=== PATIENT | female | born 2005 | race Caucasian/White ===

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

== ENCOUNTER 2024-06-20 14:14 | Outpatient (CLI) | payer OTHER, SELFPAY ==
--- NOTE | 2024-06-20 14:16 | XR_ITS ---
FINAL REPORT CLINICAL HISTORY: foot pain COMPARISON: 01/13/2022 FINDINGS: AP, oblique and lateral views of the right foot were obtained. Lytic expansile lesion in the 2nd proximal phalanx is unchanged. There is no acute osseous abnormality. The joint spaces are preserved. Soft tissues are normal. IMPRESSION: No acute osseous abnormality of the right foot. Reviewed, Interpreted and Dictated by Mara Ibrahim MD Transcribed by Swathi Saravia Authenticated and . [facility]
--- NOTE | 2024-06-20 14:16 | XR_ITS ---
FINAL REPORT CLINICAL HISTORY: foot pain COMPARISON: 01/13/2022 FINDINGS: AP, oblique and lateral views of the left foot were obtained. There is no acute fracture or dislocation. The joint spaces are preserved. Soft tissues are normal. IMPRESSION: No acute osseous abnormality of the left foot. Reviewed, Interpreted and Dictated by Mara Ibrahim MD Transcribed by Swathi Saravia Authenticated and [facility]
== END 2024-06-20 23:59 | disposition home or self-care (01) ==
LOC: RAD 14:14
PROVIDERS: PCP Family Medicine; Visit Provider Podiatrist
DX: M79.671 Pain in right foot (principal); M79.672 Pain in left foot
CPT/HCPCS: 73630

== ENCOUNTER 2024-08-25 16:00 | Outpatient (RCR) | payer OTHER, SELFPAY ==
--- NOTE | 2024-07-27 13:46 | [facility].PTOPEV ---
PT Outpatient Evaluation Rehab PT Outpatient Evaluation Start: 07/26/24 14:01 Freq: Status: Active Protocol: Document 07/27/24 07:31 FAUSTO (Rec: 07/27/24 12:59 FAUSTO [id number]) E-signed By Keyla Gannon, PT Outpatient Therapy Subjective History Subjective History This is an initial PT evaluation for 19 y/o female, Drea Pool, who presents with referral for bilateral posterior tibial tendonitis. Pt?s B foot pain has been going on for ~ 3 years. Pt reports her pain hasn't been too bad recently but has overall been progressively getting worse. Pt reports standing and walking hurt the most. Pt is on Mobic medication and reports some relief with it. Pt had X-rays performed with no acute bony abnormalities found. Pt describes her symptoms as a burning sensation in the arch of both heels. Pt denies any pain at rest. Pt has trialed ice, heat, Unna boots, and pain creams. None of the above provided relief. Pt was on steroids for a short period and reports good relief. Pt denies having prior injections d/t fear. Denies any numbness in feet. Pt has not tried PT in the past. Pt with history of plantar fasciitis in left foot that was relieved by night splinting. Pt reports some foot swelling when pain is at it's worst. Pt currently wears Kid[employer] tennis shoes without insoles. X-ray impression: No acute osseous abnormality of the left and right foot. PMH: Pt denies any significant medical history. New diagnosis of cancer in past 12 No months? Chief Complaint Pain,Swelling Symptom Type Ache,Sharp,Dull,Burning Symptoms Relieved By Rest/Positioning,Prescription Meds Symptoms Aggravated By Standing,Physical Activity, Walking Prior Functional Limitations None Current Functional Limitations Housework,Standing,Recreation Activity,Walking,Stairs Symptom Description Activity Dependent Level of pain today (0-10) 0 Pain scale - at its best (0-10) 0 Pain scale - at its worst (0-10) 10 Ankle/Foot Eval Gait Observation General Gait Pattern Observation Antalgic Gait Assistive Device Ambulation Assistive Device None Palpation Tenderness bilateral Ankle/Foot Palpation Findings None/Normal ROM Ankle/Foot Dorsiflexion w/Knee Flexed 20/ WNL Active Range of Motion (degrees) Ankle/Foot Plantar Flexion Active Range 40/WNL of Motion (degrees) Ankle/Foot Eversion Active Range of 18/WNL Motion (degrees) Ankle/Foot Inversion Active Range of 20/WNL Motion (degrees) Special Tests Ankle Anterior Drawer Test Negative Left,Negative Right Ankle Eversion Test Negative Left,Negative Right Talar Tilt Test Negative Left,Negative Right Ankle Inversion (supination) Test Negative Left,Negative Right Lower Extremity Functional Index Activities Today, do you or would you have any difficulty at all with: a.Any of your usual work, housework or Extreme difficulty or unable school activities to perform activity b. Your usual hobbies, recreational or Quite a bit of difficulty sporting activities c. Getting into or out of the bath No difficulty d. Walking between rooms No difficulty e. Putting on your shoes or socks No difficulty f. Squatting Moderate difficulty g. Lifting an object, like a bag of Quite a bit of difficulty groceries from the floor h. Performing light activities around No difficulty your home i. Performing heavy activities around Quite a bit of difficulty your home j. Getting into or out of a car No difficulty k. Walking 2 blocks Extreme difficulty or unable to perform activity l. Walking a mile Extreme difficulty or unable to perform activity m. Going up or down 10 stairs (about 1 Extreme difficulty or unable flight of stairs) to perform activity n. Standing for 1 hour Extreme difficulty or unable to perform activity o. Sitting for 1 hour No difficulty p. Running on even ground Extreme difficulty or unable to perform activity q. Running on uneven ground Extreme difficulty or unable to perform activity r. Making sharp turns while running fast Extreme difficulty or unable to perform activity s. Hopping Quite a bit of difficulty t. Rolling over in bed No difficulty LEFI Score Lower Extremity Functional Index Score 34 Outpatient Therapy Assessment Impairments Problems/Impairmments Impaired Strength,Impaired Endurance,Impaired Gait Pattern,Impaired Walking, Impaired Standing,Impaired Stair Climbing,Impaired Recreational Activities, Impaired Running,Impaired Jumping,Impaired Work Activities,Subjective C/O Pain Prognosis Rehab Potential Good Comment Pt presents with subjective complaints of B arch pain/ burning when walking and standing. Pt demonstrated acquired flat feet when weight bearing. Pt not TTP nor demo' d impaired ROM this date. Pt's B ankle strength is good-. Pt only has symptoms after a period of standing/walking so pt did not have many pain complaints upon eval except when standing and weight shifting. PT educated pt on having proper insoles, performing HEP twice daily, initiating a walking program within her pain tolerance, and attending PT twice weekly. Pt would benefit from skilled OP PT to address weakness in her feet, strengthen the arch supporting muscles, and decrease pain. Clinical Impression Consistent with Diagnosis Yes Short Term Goals Number of Weeks 3 Increase Strength Yes: B ankle MT 4/5 globally. Increase Ability to Walk Yes: Verbalize initiation of daily walking program. Improve LEFI Score Yes: Improve by 4 points to improve LE functioning. Decrease Subjective C/O Pain Yes: Have a minimal 24 hour pain average of 3-4/10. Patient to be Ind w/ HEP Yes: Verbalize IND with HEP Shelter Goals Number of Weeks 6 Increase Strength Yes: B ankle/foot strength 5/5 to maximize function. Increase Ability to Walk Yes: Verbalize adherence to walking program to improve tolerance to WBing tasks. Improve LEFI Score Yes: Score a 44/80 to improve LE functioning. Decrease Subjective C/O Pain Yes: Decrease her at worst pain in past 48 hours to 5/10. Patient to be Ind w/ Advanced HEP Yes: Verbalize adherence to HEP. Outpatient Therapy Plan of Care Treatment Plan May Include Therapeutic Exercise Including Home Yes Exercise Program Manual Therapy Techniques Yes Neuromuscular Re-education Yes Therapeutic Activities to Return to Yes Previous Functional/Work Level Gait Training Yes ADL/Self Care Education Yes Dry Needling Yes Thermal Modalities Yes Electrical Stimulation Yes Ultrasound/Phonophoresis Yes Iontophoresis Yes Parrafin Yes Orthotics/Bracing/Splinting Yes Vasopneumatic Compression Pump Yes Massage Yes Eval/Re-Eval Yes Frequency Times per week 2x per week Duration Number of Weeks 5-6 weeks Addendums This patient is a candidate for social No or vocational rehab? Patient/Guardian verbally acknowledges Yes understanding of treatment program and consents to further treatment? Patient/Guardian verbally acknowledges Yes understanding of diagnosis, prognosis and goals for treatment? Eval Complexity PT Charges 99841 - Low Complexity Shoulder/Elbow Eval Shoulder Objective Measurements Elbow Objective Measurements PHYSICIAN CERTIFICATION: I certify the specified therapy services for Drea Pool are required, authorized, and reviewed every 30 days.
== END 2024-08-25 23:59 | disposition home or self-care (01) ==
LOC: PT 16:00
PROVIDERS: Visit Provider Podiatrist
DX: M76.821 Posterior tibial tendinitis, right leg (principal); M76.822 Posterior tibial tendinitis, left leg; M21.41 Flat foot [pes planus] (acquired), right foot; M21.42 Flat foot [pes planus] (acquired), left foot
CPT/HCPCS: 97035; 97110; 97140; 97163